=== PATIENT | male | born 1960 | race Caucasian/White ===

== ENCOUNTER 2018-07-26 10:31 | Day surgery (SDC) | payer OTHER ==
[2018-07-26 10:53] LABS: Absolute Lymphocytes (CBC) 2.3 K/uL (0.7-4.9); Absolute Monocytes 1.2 K/uL (0.1-1.3); Absolute Neutrophil 9.1 K/uL (1.8-8.0); Basophils % 0.6 % (0-1.3); Eosinophils % 1.5 % (0-4.4); Hematocrit 46.7 % (39.6-49.0); Lymphocytes % 17.6 % (15.3-44.8); MCH 30.1 pg (27.0-35.0); MCV 87.5 fL (80-100); MPV 8.3 fL (7.6-11.3); Monocytes % 9.2 % (3.3-12.3); RBC Red Blood Cell Count 5.34 M/uL (4.33-5.43)
[2018-07-26] MEDS ORDERED: CEFAZOLIN/SWI 1gm 1 GM/10 ML SYR ONE (11:02)
[2018-07-26] MEDS ORDERED: NA CHLORIDE 0.9% 1,000 ML ONE (11:02)
[2018-07-26 11:12] LABS: Potassium 4.1 mmol/L (3.5-5.1)
--- NOTE | 2018-07-26 11:40 | RAD REPORT ---
EXAM DESCRIPTION: RAD - Chest Pa And Lat (2 Views) - 07/26/2018 11:34 am CLINICAL HISTORY: Preop chest, patient pending right axillary soft tissue mass removal COMPARISON: None. TECHNIQUE: PA and lateral views of the chest were obtained. FINDINGS: The lungs are clear of focal infiltrate, mass or failure finding. Interstitial markings ar e prominent believed to be baseline for the patient. Slight nodularity left suprahilar region is julio eved to be vasculature seen on and. A repeat PA chest film in 4-6 months could be used to assure stab ility. Heart size is normal and central vasculature is within normal limits. No pleural effusion or pneu mothorax seen. No acute bony finding noted. No aortic abnormality. IMPRESSION: No failure, infiltrate or other acute cardiopulmonary finding. Patient has interstitial markings that are prominent and believed to be baseline. Minimal nodularity left suprahilar region is believed to be vasculature. Follow-up PA chest film in 4 -6 months could ensure stability.
[2018-07-26] MEDS ORDERED: ONDANSETRON HCL 40 MG/20 ML VIAL ONE (11:57)
[2018-07-26] MEDS ORDERED: FENTANYL CITR 100 MCG/2 ML ONE (11:57)
[2018-07-26] MEDS ORDERED: PROPOFOL 200 MG/20 ML VIAL IV ONE (11:57)
[2018-07-26] MEDS ORDERED: MIDAZOLAM HCL 2 MG/2 ML INJ ONE (11:57)
[2018-07-26] MEDS ORDERED: LIDOCAINE 1% MPF 2 ML AMPULE ONE (11:57)
--- NOTE | 2018-07-26 12:18 | EKG ---
Test Date: 2018-07-26 Test Time: 11:09:56 Duralumin Mechanic: DIDI MEASUREMENT RESULTS: Intervals: Rate: 84 NC: 158 QRSD: 98 QT: 382 QTc: 451 [place]: P: 53 NC: 158 QRS: 2 T: 69 INTERPRETIVE STATEMENTS: Normal sinus rhythm Normal ECG No previous ECG available for comparison Electronically Signed On 07-26-18 12:17:25 [facility]ULANCE DRIVER by Dae Valencia
[2018-07-26] MEDS ORDERED: MEPERIDINE HCL 50 MG/ML AMP ONE (13:04)
--- NOTE | 2018-07-26 15:07 | DS ---
Date of Discharge: 07/26/2018 Discharge Note: The patient will go to Day Surgery and home when stable. Disposition: Home. Condition: Stable. Discharge Instructions: Resume home medications and diet. Activity as tolerated. No heavy lifting. Remove dressing in a.m. Wet-to-dry normal saline dressing changes daily, teach patient and family. The patient has antibiotics Tylenol No. 3 one tablet p.o. q.4h. p.r.n. pain. Follow up in my office in a week. Call for appointment. PEYTON/JOSE D Voice ID: [id number] Report ID: [id number]
--- NOTE | 2018-07-26 15:07 | OP ---
Date of Procedure: 07/26/2018 Surgeon: Paco Shultz MD Preoperative Diagnosis: Abscess, right axilla. Postoperative Diagnosis: Abscess, right axilla. Procedures: Incision, drainage, and debridement of abscess, right axilla. Estimated Blood Loss: Minimal. Specimen: Pus. Findings: As above. Anesthesia: General. Complications: None. Disposition: The patient tolerated the procedure in stable condition and taken to Recovery in good g eneral condition. Procedure In Detail: The patient was brought to the OR and placed in supine position. General anest hesia begun. The patient was prepped and draped in usual sterile fashion. Marcaine 0.5% was infiltr ated locally and then a 15-blade was used to make a 4-cm incision. Pus evacuated. Loculations broke n up. Necrotic tissue debrided. Wound irrigated. Bleeding controlled with cautery. Cultures done. Wet-to-dry normal saline dressing change applied. The patient tolerated the procedure in stable condition and taken to Recovery in good general condition. PEYTON/CARMENL Voice ID: [id number] Report ID: [id number]
== END 2018-07-26 14:08 | disposition home or self-care (01) ==
LOC: OR 10:31
PROVIDERS: ATTEND Surgery
PROC: 0J9D0ZZ Drainage of Right Upper Arm Subcutaneous Tissue and Fascia, Open Approach (ICD-10-PCS; principal; 2018-07-26 12:15)
DX: L02.411 Cutaneous abscess of right axilla (principal); E11.9 Type 2 diabetes mellitus without complications; I10 Essential (primary) hypertension; G47.33 Obstructive sleep apnea (adult) (pediatric)
CPT/HCPCS: 36415; 71046; 80048; 82962; 85025; 87070; 87075; 87077; 87186; 87205; 93005; J0690; J2001; J2175; J2250; J2405; J2704; J3010; J7030